=== PATIENT | male | born 1975 | race Caucasian/White ===

== ENCOUNTER 2018-12-05 10:47 | Emergency (ER) | payer OTHER ==
[~2018-12-05] VITALS: Ht 182.9 cm; Wt 104.3 kg
[2018-12-05 10:51] VITALS: BP 136/98
--- NOTE | 2018-12-05 11:05 | NUR ---
Note undone in EDM - 12/05/18 at 1141 by LIBBY PT BIB SELF TO THE ED WITH THE CHIEF C/O ELEVATED BS. REPORTS BLURRY VISION AT THIS TIME. DENIES ANY DIZZINESS OR HEADACHE AT THIS TIME. DENIES NAUSEA OR VOMITING. DENIES ANY FEVER. PT IS NOT TAKING MEDICINES FOR DIABETES. HX OF DM, PANCREAS AND KIDNEY TRANSPLANT. DENIES PAIN AT THIS TIME. ER AWARE.
[2018-12-05] MEDS ORDERED: NACL 0.9% 1,000 ML IV SCH (11:15)
[2018-12-05 11:36] LABS: BASOPHILS % (AUTO) 0.2 % (0.0-2.0); EOSINOPHILS # (AUTO) 0.1 K/uL (0-0.4); EOSINOPHILS % (AUTO) 0.7 % (0.0-4.0); HEMATOCRIT 48.3 % (36-52); HEMOGLOBIN 16.6 g/dL (12.0-18.0); LYMPHOCYTES # (AUTO) 0.9 K/uL (2.0-11.5); LYMPHOCYTES % (AUTO) 10.4 % (20.5-51.1); MEAN CORPUSCULAR HEMOGLOBIN 31 pg (27-31); MEAN CORPUSCULAR HGB CONC 34 g/dL (33-37); MEAN CORPUSCULAR VOLUME 91.1 fL (80-94); MONOCYTES # (AUTO) 0.6 K/uL (0.8-1.0); MONOCYTES % (AUTO) 6.5 % (1.7-9.3); NEUTROPHILS # (AUTO) 7.2 K/uL (1.8-7.7); NEUTROPHILS % (AUTO) 82.2 % (42.2-75.2); PLATELET COUNT (AUTO) 324 K/uL (140-450); RED CELL DISTRIBUTION WIDTH 13.6 % (11.6-13.7); WHITE BLOOD COUNT (AUTO) 8.7 K/uL (4.8-10.8)
[2018-12-05 11:42] LABS: APPEARANCE,URINE CLEAR (CLEAR); BILIRUBIN,URINE NEGATIVE (NEGATIVE); BLOOD, URINE NEGATIVE (NEGATIVE); COLOR,URINE YELLOW (YELLOW); LEUKOCYTE ESTERASE ,URINE NEGATIVE (NEGATIVE); NITRITE, URINE NEGATIVE (NEGATIVE); UGLUCOSE 3+ (NEGATIVE)
[2018-12-05 11:54] LABS: ALBUMIN 3.8 g/dL (3.4-5.0); ANION GAP 13.7 (8-16); CARBON DIOXIDE 28.1 mmol/L (21-32); CREATININE 1.7 mg/dL (0.7-1.3); POTASSIUM 4.8 mmol/L (3.5-5.1); TOTAL BILIRUBIN 1.7 mg/dL (0.0-1.0)
[2018-12-05 11:55] LABS: RBC,URINE 0-5 /HPF (0-5); WBC,URINE 0-5 /HPF (0-5)
[2018-12-05] MEDS ORDERED: NACL 0.9% 1,000 ML IV ONE (12:15)
[2018-12-05] MEDS ORDERED: INSULIN REGULAR, HUMAN 100 UNIT/ML VIAL IVP ONE (12:35)
--- NOTE | 2018-12-05 13:45 | NUR ---
RE-EVALUATED BY MAURICIO BORGES.
[2018-12-05 14:21] VITALS: BP 147/95
--- NOTE | 2018-12-05 14:21 | NUR ---
Patient discharged with v/s stable. Written and verbal after care instructions given and explained. Patient alert, oriented and verbalized understanding of instructions. Ambulatory with steady gait. All questions addressed prior to discharge. ID band removed. Patient advised to follow up with PMD. Rx of ACCU CHECK JACOB PLUS BLOOD GLUCOSE MONITOR, [id number] FashionQlubUXE WRIST BLOOD PRESSURE MONITOR, NOVOLOG PENFILL 100U/ML, LANTUS SOLOSTAR 100U/ML given. Patient educated on indication of medication including possible reaction and side effects. Opportunity to ask questions provided and answered.
== END 2018-12-05 14:21 | disposition home or self-care (01) ==
LOC: MED 10:47
DX: E11.65 Type 2 diabetes mellitus with hyperglycemia (principal); Z94.0 Kidney transplant status; Z94.83 Pancreas transplant status
CPT/HCPCS: 36415; 80053; 81001; 82948; 83036; 83690; 84681; 85025; 96361; 96374; 99283; J1815; J7030